=== PATIENT | female | born 1995 | race Caucasian/White ===

== ENCOUNTER 2024-05-11 10:07 | Emergency (ER) | payer OTHER, SELFPAY ==
[2024-05-11 10:23] VITALS: BP 137/57; PULSE 99; RESP 16; TEMP 37.7; O2SAT 100
--- NOTE | 2024-05-11 10:35 | ED.URI ---
HPI - URI/Sore Throat General Chief Complaint: Upper Respiratory Infection Stated Complaint: flu like symptoms Time Seen by Provider: 05/11/24 10:28 Source: patient and RN notes reviewed Mode of arrival: ambulatory Limitations: no limitations History of Present Illness HPI Narrative: Patient presents today complaining of fatigue, chills, cough, chest wall pain, nasal congestion. Symptoms began last night. She has tried no [id number] treatment prior to arrival. Patient is on multiple cardiac medications due to congenital heart disease. Related Data Home Medications ?Medication ?Instructions ?Recorded ?Confirmed ?Last Taken ?Type digoxin 125 mcg (0.125 mg) tablet 0.125 mg PO .dialy 05/11/24 05/11/24 Unknown History diltiazem HCl 180 mg 180 mg PO Q24H 05/11/24 05/11/24 Unknown History capsule,extended release 24 hr losartan 25 mg tablet 25 mg PO DAILY 05/11/24 05/11/24 Unknown History warfarin 1 mg tablet 1 mg PO DAILY 05/11/24 05/11/24 Unknown History warfarin 5 mg tablet 5 mg PO DAILY 05/11/24 05/11/24 Unknown History Allergies Allergy/AdvReac Type Severity Reaction Status Date / Time No Known Allergies Allergy Verified 05/11/24 10:24 Review of Systems Review of Systems: CONSTITUTIONAL: Denies body aches, fever, or sweats.+ chills, fatigue EYES: Denies visual changes, redness, or discharge. ENT: Denies rhinorrhea, sore throat, or otalgia.+ congestion CARDIOVASCULAR: Denies chest pain, palpitations, or edema. RESPIRATORY: Denies dyspnea.+ cough, chest wall pain GASTROINTESTINAL: Denies abdominal pain, nausea, vomiting, or diarrhea. GENITOURINARY: Denies dysuria or hematuria. SKIN: Denies rash, itching, or wounds. MUSCULOSKELETAL: Denies back pain, joint pain, or myalgia. NEUROLOGIC: Denies headache, numbness, tingling, or weakness. PSYCH: Denies depression or anxiety. PMFSH Comments At time of signature, I have reviewed and agree with nursing past medical, surgical, social and family history unless otherwise noted. Please see nursing chart for further information. There is no relevant family history pertinent to the presenting complaint Exam Narrative: GENERAL: Mildly ill-appearing, well-nourished, and in no acute distress. HEAD: Normocephalic, atraumatic. EYES: EOMI. No redness or drainage. Conjunctivae normal. ENT: Mucous membranes pink and moist. Nares congested with rhinorrhea. TMs normal bilaterally. Throat normal. Uvula midline. NECK: Normal AROM. Supple. No lymphadenopathy. CHEST: No respiratory distress. Clear to auscultation. HEART: Regular rate and rhythm. No murmur appreciated. EXTREMITIES: Normal range of motion. No edema. SKIN: Warm, dry, no rash. Capillary refill normal. Normal skin turgor. NEURO: No focal deficits. Alert and oriented x3. Gait steady. PSYCH: Normal affect. No signs of depression or anxiety. Course Course Level of Care: Express Care Visit Vital Signs Vital signs: Vital Signs Temperature 100 F H 05/11/24 10:23 Pulse Rate 99 05/11/24 10:23 Respiratory Rate 16 05/11/24 10:23 Blood Pressure 137/57 L 05/11/24 10:23 Pulse Oximetry 100 05/11/24 10:23 Temperature 100 F H 05/11/24 10:23 Pulse Rate 99 05/11/24 10:23 Respiratory Rate 16 05/11/24 10:23 Blood Pressure 137/57 L 05/11/24 10:23 Pulse Oximetry 100 05/11/24 10:23 Reviewed MDM - URI/Sore Throat MDM Narrative Medical decision making narrative: Influenza and COVID negative. Patient will be prescribed Tamiflu in case her influenza test is a false negative, based on her symptoms, as patient has extensive cardiac history. Symptoms likely viral in etiology. Discussed [id number] medication use and duration of illness. Anticipatory guidance given. Differential Diagnosis Differential diagnosis: Likely upper respiratory infection, viral infection, bronchitis, influenza and other (COVID-19) Lab Data Attestation: I reviewed the patient's lab results. Lab results narrative: Influenza and COVID negative Labs: Lab Results 05/11/24 Range/Units 10:37 POC Influenza A Ag Negative (Negative) POC Influenza B Ag Negative (Negative) POC SARS CoV-2 Ag Negative (Negative) Critical Care Time Critical Care Time Critical Care Time: No Discharge Plan Discharge Clinical Impression: Viral illness Patient Disposition: Home, Self-Care Condition: Stable Instructions: Viral Syndrome (ED) Additional Instructions: Your influenza and COVID-19 tests are negative today. Please take the Tamiflu as prescribed. You may take Tylenol/acetaminophen at home for pain or fever. You may not take ibuprofen/Motrin/Advil or naproxen/Aleve due to your Coumadin. You may consider a steroid nasal spray such as Flonase to help with your congestion. Follow-up with your PCP next week if symptoms are not improving. Go to the ER immediately if symptoms worsen to include shortness of breath were persistent fever past 5 days. Your blood pressure was elevated above 120/80 today at Urgent Care. This puts you above the threshold for follow up. Please schedule a followup visit with your personal physician as soon as possible, for further evaluation and treatment. Even blood pressure exceeding 120/80 may indicate pre-hypertension. Patient Language: Panamanian Prescriptions: New oseltamivir [Tamiflu] 75 mg capsule 75 mg PO Q12H 5 Days Qty: 10 0RF No Action warfarin 5 mg tablet 5 mg PO DAILY warfarin 1 mg tablet 1 mg PO DAILY digoxin 125 mcg (0.125 mg) tablet 0.125 mg PO .dialy diltiazem HCl 180 mg capsule,extended release 24hr 180 mg PO Q24H losartan 25 mg tablet 25 mg PO DAILY Follow-up/Referrals: Rocky,Irene Ospina [Other] Stand Alone Forms: Work/School Release IP Time of Disposition: 10:51
[2024-05-11 10:39] LABS: EDCOVIDSCREEN Negative (Negative); EDINFLUASCREEN Negative (Negative); EDINFLUBSCREEN Negative (Negative)
== END 2024-05-11 10:57 | disposition home or self-care (01) ==
PROVIDERS: Emergency Provider Nurse Practitioner
DX: B34.9 Viral infection, unspecified (principal); Z20.822 Contact with and (suspected) exposure to COVID-19; Q24.9 Congenital malformation of heart, unspecified; Z95.2 Presence of prosthetic heart valve; Z79.01 Long term (current) use of anticoagulants
CPT/HCPCS: 87426; 87804; 99203; G0463